=== PATIENT | female | born 1995 ===

== ENCOUNTER → 2021-07-10 | Outpatient (CLI) | payer OTHER | LOC: LAB SHORT 18:19 → LAB 18:19 | DX: J06.9 Acute upper respiratory infection, unspecified (principal); J02.9 Acute pharyngitis, unspecified | CPT/HCPCS: 87081 ==

== ENCOUNTER → 2024-08-20 | Outpatient (CLI) | payer SELFPAY | LOC: LAB 13:10 → LAB SHORT 13:10 | DX: R31.9 Hematuria, unspecified (principal) | CPT/HCPCS: 87086 ==